=== PATIENT | male | born 1960 | race Caucasian/White ===

== ENCOUNTER → 2021-03-10 | Day surgery (SDC) | payer MEDICARE, OTHER ==
[~2021-03-10] MED LIST: AMLODIPINE BESYL5 MG PO; BUPIVACAINE 0.25% 30ML SDV ONE; NEOSTIGMINE 1 MG/ML 10ML VIAL ONE; PRILOSEC OTC20 MG PO
[2021-03-10 08:17] LABS: BASOPHILS % 0.8 % (0.0-1.0); EOSINOPHILS # (AUTO) 0.3 (0.0-0.4); EOSINOPHILS % 5.3 % (0.0-6.0); HEMATOCRIT 37.2 % (38.2-49.6); HEMOGLOBIN 13.1 g/dL (14.0-18.0); LYMPHOCYTES # (AUTO) 2.4 (1.0-3.2); LYMPHOCYTES % 45.5 % (18.0-39.1); MEAN CORPUSCULAR HEMOGLOBIN 30.1 pg (28-32); MEAN CORPUSCULAR HGB CONC 35.2 g/dL (31-35); MEAN CORPUSCULAR VOLUME 85.5 fL (81-99); MONOCYTES # (AUTO) 0.7 (0.2-0.8); MONOCYTES % 12.9 % (4.4-11.3); NEUTROPHILS # (AUTO) 1.9 (2.1-6.9); NEUTROPHILS % 35.3 % (38.7-80.0); PLATELET COUNT 217 x10e3/uL (140-360); RED BLOOD COUNT 4.35 x10e6/uL (4.3-5.7); RED CELL DISTRIBUTION WIDTH 14.8 % (11.7-14.4)
[2021-03-10 09:50] VITALS: BP 130/81
== END | disposition home or self-care (01) ==
LOC: OR 06:46
PROVIDERS: ATTEND Urology
DX: A63.0 Anogenital (venereal) warts (principal); N39.0 Urinary tract infection, site not specified; R35.1 Nocturia; I44.7 Left bundle-branch block, unspecified; J44.9 Chronic obstructive pulmonary disease, unspecified; I10 Essential (primary) hypertension; Z01.810 Encounter for preprocedural cardiovascular examination; Z01.812 Encounter for preprocedural laboratory examination; Z20.822 Contact with and (suspected) exposure to COVID-19; Z87.891 Personal history of nicotine dependence
CPT/HCPCS: 36415; 54065; 85025; 93005; J0690; J2710; U0002

== ENCOUNTER 2022-01-21 11:38 | Observation (INO) | payer MEDICARE, OTHER ==
[~2022-01-21] VITALS: Ht 177.8 cm; Wt 68.0 kg
[~2022-01-21 11:38] MED LIST changes: -BUPIVACAINE 0.25% 30ML SDV ONE; -NEOSTIGMINE 1 MG/ML 10ML VIAL ONE
[2022-01-21 12:24] LABS: BASOPHILS % 0.6 % (0.0-1.0); EOSINOPHILS # (AUTO) 0.1 (0.0-0.4); HEMATOCRIT 29.8 % (38.2-49.6); HEMOGLOBIN 10.8 g/dL (14.0-18.0); LYMPHOCYTES # (AUTO) 2.2 (1.0-3.2); LYMPHOCYTES % 45.3 % (18.0-39.1); MEAN CORPUSCULAR HEMOGLOBIN 31.4 pg (28-32); MEAN CORPUSCULAR HGB CONC 36.2 g/dL (31-35); MEAN CORPUSCULAR VOLUME 86.6 fL (81-99); MONOCYTES # (AUTO) 0.8 (0.2-0.8); MONOCYTES % 16.2 % (4.4-11.3); NEUTROPHILS # (AUTO) 1.7 (2.1-6.9); NEUTROPHILS % 35.5 % (38.7-80.0); PLATELET COUNT 203 x10e3/uL (140-360); RED BLOOD COUNT 3.44 x10e6/uL (4.3-5.7)
[2022-01-21 12:42] LABS: ALANINE AMINOTRANSFERASE 59 IU/L (0-55); ALBUMIN 3.4 g/dL (3.5-5.0); ALBUMIN/GLOBULIN RATIO 1.5 (0.8-2.0); ALKALINE PHOSPHATASE 34 IU/L (40-150); ANION GAP 19.7 mmol/L (8-16); BLOOD UREA NITROGEN < 5 mg/dL (7-26); CALCIUM 8.3 mg/dL (8.4-10.2); CARBON DIOXIDE 22 mmol/L (22-29); CHLORIDE 79 mmol/L (98-107); CREATININE, SERUM 0.68 mg/dL (0.72-1.25); GLUCOSE 111 mg/dL (74-118)
[2022-01-21 12:43] LABS: BUN/CREATININE RATIO 7 (6-25)
[2022-01-21] MEDS ORDERED: POTASSIUM CHLORIDE 20 MEQ TAB CR PO STA (12:44)
[2022-01-21 12:45] LABS: POTASSIUM 2.7 mmol/L (3.5-5.1); SODIUM 118 mmol/L (136-145)
[2022-01-21] MEDS ORDERED: POTASSIUM CHLORIDE 20MEQ/100ML 200 ML IV ONE (12:45)
[2022-01-21] MEDS ORDERED: THIAMINE HCL INJ 100 MG/ML 2ML VIAL IV ONE (13:15)
[2022-01-21 14:06] VITALS: BP 121/92
[2022-01-21 14:41] VITALS: BP 121/92
[2022-01-21 14:42] VITALS: BP 121/92
[2022-01-21 14:46] VITALS: BP 121/92
[2022-01-21] MEDS ORDERED: OMEPRAZOLE40 MG PO (15:43)
[2022-01-21] MEDS ORDERED: SODIUM CHLORIDE 0.9% 250ML 250 ML ONE (15:49)
[2022-01-21 16:17] VITALS: BP 113/69
[2022-01-21] MEDS: POTASSIUM CHLORIDE 40 MEQ in SODIUM CHLORIDE 0.9% 1000ML 1,000 ML IV SCH (17:47)
[2022-01-21 20:00] VITALS: BP 121/73
[2022-01-22] VITALS (8 sets, daily range): BP systolic 109–131; BP diastolic 65–96
[2022-01-22] MEDS: POTASSIUM CHLORIDE 40 MEQ in SODIUM CHLORIDE 0.9% 1000ML 1,000 ML IV SCH ×3 (04:40→19:37)
[2022-01-22 06:40] LABS: BASOPHILS % 0.1 % (0.0-1.0); EOSINOPHILS % 0.3 % (0.0-6.0); HEMATOCRIT 32.8 % (38.2-49.6); HEMOGLOBIN 11.3 g/dL (14.0-18.0); LYMPHOCYTES # (AUTO) 1.8 (1.0-3.2); LYMPHOCYTES % 26.5 % (18.0-39.1); MEAN CORPUSCULAR HEMOGLOBIN 31.2 pg (28-32); MEAN CORPUSCULAR HGB CONC 34.5 g/dL (31-35); MEAN CORPUSCULAR VOLUME 90.6 fL (81-99); MONOCYTES % 14.3 % (4.4-11.3); NEUTROPHILS # (AUTO) 4.1 (2.1-6.9); NEUTROPHILS % 58.4 % (38.7-80.0); PLATELET COUNT 211 x10e3/uL (140-360); RED BLOOD COUNT 3.62 x10e6/uL (4.3-5.7); RED CELL DISTRIBUTION WIDTH 12.6 % (11.7-14.4)
[2022-01-22 07:05] LABS: ANION GAP 21.3 mmol/L (8-16); BLOOD UREA NITROGEN < 5 mg/dL (7-26); CALCIUM 8.6 mg/dL (8.4-10.2); CARBON DIOXIDE 20 mmol/L (22-29); CHLORIDE 94 mmol/L (98-107); CREATININE, SERUM 0.66 mg/dL (0.72-1.25); GLUCOSE 69 mg/dL (74-118); MAGNESIUM 1.9 MG/DL (1.3-2.1); PHOSPHORUS 2.7 MG/DL (2.3-4.7); POTASSIUM 4.3 mmol/L (3.5-5.1); SODIUM 131 mmol/L (136-145)
[2022-01-22 07:06] LABS: BUN/CREATININE RATIO 8 (6-25)
[2022-01-22] MEDS: FOLIC ACID/CYANOCOB/PYRIDOXINE TAB PO SCH (08:55)
[2022-01-22] MEDS: AMLODIPINE BESYLATE 5 MG TAB PO SCH (08:55)
[2022-01-22] MEDS: PANTOPRAZOLE SOD 40 MG TABEC PO SCH (08:55)
[2022-01-22] MEDS: THIAMINE HCL INJ 100 MG/ML 2ML VIAL IV SCH ×2 (09:00→09:45)
[2022-01-22] MEDS: CHLORDIAZEPOXIDE HCL 10 MG CAP PO SCH ×3 (11:02→21:10)
[2022-01-23] VITALS: BP 110/74
[2022-01-23 04:00] VITALS: BP 127/77
[2022-01-23] MEDS: CHLORDIAZEPOXIDE HCL 10 MG CAP PO SCH ×2 (04:57→10:01)
[2022-01-23 06:20] LABS: BASOPHILS % 0.5 % (0.0-1.0); EOSINOPHILS # (AUTO) 0.1 (0.0-0.4); HEMATOCRIT 37.6 % (38.2-49.6); HEMOGLOBIN 12.6 g/dL (14.0-18.0); LYMPHOCYTES % 32.1 % (18.0-39.1); MEAN CORPUSCULAR HEMOGLOBIN 31.8 pg (28-32); MEAN CORPUSCULAR HGB CONC 33.5 g/dL (31-35); MEAN CORPUSCULAR VOLUME 94.9 fL (81-99); MONOCYTES % 16.2 % (4.4-11.3); NEUTROPHILS # (AUTO) 3.1 (2.1-6.9); NEUTROPHILS % 49.9 % (38.7-80.0); PLATELET COUNT 207 x10e3/uL (140-360); RED BLOOD COUNT 3.96 x10e6/uL (4.3-5.7); RED CELL DISTRIBUTION WIDTH 12.8 % (11.7-14.4)
[2022-01-23 06:48] LABS: ANION GAP 18.7 mmol/L (8-16); BLOOD UREA NITROGEN < 5 mg/dL (7-26); CALCIUM 8.9 mg/dL (8.4-10.2); CARBON DIOXIDE 17 mmol/L (22-29); CHLORIDE 98 mmol/L (98-107); CREATININE, SERUM 0.54 mg/dL (0.72-1.25); GLUCOSE 79 mg/dL (74-118); POTASSIUM 3.7 mmol/L (3.5-5.1); SODIUM 130 mmol/L (136-145)
[2022-01-23 06:49] LABS: BUN/CREATININE RATIO 9 (6-25)
[2022-01-23 08:17] VITALS: BP 121/85
[2022-01-23 09:06] VITALS: BP 121/85
[2022-01-23] MEDS: AMLODIPINE BESYLATE 5 MG TAB PO SCH (10:00)
[2022-01-23] MEDS: FOLIC ACID/CYANOCOB/PYRIDOXINE TAB PO SCH (10:00)
[2022-01-23] MEDS: PANTOPRAZOLE SOD 40 MG TABEC PO SCH (10:00)
[2022-01-23] MEDS: POTASSIUM CHLORIDE 40 MEQ in SODIUM CHLORIDE 0.9% 1000ML 1,000 ML IV SCH (10:00)
[2022-01-23 12:20] VITALS: BP 128/98
== END 2022-01-23 12:55 | disposition home or self-care (01) ==
LOC: ER 11:43 → INTOOBSV 13:13 → ERHOLD 13:13 → MED/SURG3 14:03
PROVIDERS: ADMIT Internal Medicine; ATTEND Internal Medicine
DX: F10.221 Alcohol dependence with intoxication delirium (principal); Y90.6 Blood alcohol level of 120-199 mg/100 ml; Z20.822 Contact with and (suspected) exposure to COVID-19; F10.231 Alcohol dependence with withdrawal delirium; E87.1 Hypo-osmolality and hyponatremia; E87.6 Hypokalemia; I10 Essential (primary) hypertension; F32.A Depression, unspecified; F41.9 Anxiety disorder, unspecified; K21.9 Gastro-esophageal reflux disease without esophagitis; R07.89 Other chest pain
CPT/HCPCS: 0223U; 36415 ×3; 71045; 73522; 80048 ×2; 80053; 80320; 83735; 83880; 84100; 84484; 85025 ×3; 93005; 94799 ×2; 97161; 99284; G0378 ×3; J3411 ×3; J3480 ×4; J7030 ×3; J7050; S0164 ×2